=== PATIENT | male | born 1975 | race Two or more races ===

== ENCOUNTER 2024-01-19 09:58 | Outpatient (CLI) | payer MEDICAID ==
[~2024-01-19] VITALS: Ht 180.3 cm; Wt 131.5 kg
[2024-01-19] MEDS: albuterol 2.5 MG/3 ML nebule NEB ONE (10:37)
[2024-01-19 10:38] VITALS: PULSE 101; RESP 16; O2SAT 96
[2024-01-19 10:51] VITALS: PULSE 105; RESP 16
== END 2024-01-19 23:59 | disposition home or self-care (01) ==
LOC: RT 09:58
PROVIDERS: ATTEND Family Medicine
DX: R05.9 Cough, unspecified (principal); F17.200 Nicotine dependence, unspecified, uncomplicated
CPT/HCPCS: 94060; 94760; J7030